=== PATIENT | female | born 1950 | race Caucasian/White ===

== ENCOUNTER → 2021-03-17 09:21 | Outpatient (CLI) | payer MEDICAID, SELFPAY ==
--- NOTE | 2021-03-17 09:34 | CT_ITS ---
STUDY: CT BILATERALLOWER EXTREMITY WITHOUT CONTRAST REASON FOR EXAM: Female, 71 years old. templating for right ROSALIE RADIATION DOSAGE (If Supplied By Facility): CTDIvol = ( 231.77 ) mGy, DLP = ( 2572.08 ) mGycm TECHNIQUE: Thin section transaxial imaging of from the pelvis down to the knee joints, with sagittal and coronal reconstructed images. Individualized dose optimization techniques were used for this CT. COMPARISON: None. FINDINGS: There is severe narrowing and associated degenerative changes of the right hip and moderate to severe degenerative changes and narrowing of the left hip. The bony structures are diffusely demineralized. No visualized fractures of the pelvis or sacrum or bilateral hips. No fractures are seen in the femoral regions or knee joints. Mild to moderate narrowing is present in the lateral knee joint. The visualized abdominal and pelvic structures are unremarkable. At the sclerotic calcifications are present in the aorta as well as extremity arteries. Small calcified buttock granulomata noted bilaterally. CT/Extremity Lower without Contra IMPRESSION: 1. 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
== END ==
PROVIDERS: Referring Provider Orthopaedic Surgery; Visit Provider Orthopaedic Surgery
DX: M16.11 Unilateral primary osteoarthritis, right hip (principal)
CPT/HCPCS: 73700

== ENCOUNTER 2021-04-18 05:35 | Observation (INO) | payer MEDICAID, SELFPAY ==
[2021-04-18] VITALS (16 sets, daily range): BP systolic 103–149; BP diastolic 64–98; PULSE 53–76; RESP 16–100; TEMP 35.6–36.6; O2SAT 16–100; BMI 20.5
[2021-04-18 06:40] LABS: Bedside Glucose 87 mg/dL (70-110)
[2021-04-18] MEDS: Lactated Ringers 1,000 ML 999 ML IV (06:54)
--- NOTE | 2021-04-18 07:01 | HP.PCM_ITS ---
History and Physical Date of Admission: 04/18/21 Date of Service: 02/10/21 MR#:[id number]:[id number]: Meghna MOBLEY #:[id number]:[id number] Provider:Dr. Bharat Noriega DOAge/Sex: 70/F [facility]Signed Intake Vital Signs 02/10/21 08:19 Height 5 ft 10 in Intake Visit Reasons: RIGHT LEG Accompanied by: self Is patient in pain?: Yes Pain scale (1-10): 8 Allergies aspirin Allergy (Unknown, Verified 02/10/21 08:19) unknown Medications acetaminophen 325 mg tablet 650 mg PO ONCE PRN tab 02/10/21 [History Confirmed 02/10/21] albuterol sulfate 90 mcg/actuation breath activated powder inhaler 2 inh INHALATION Q4H PRN 02/10/21 [History Confirmed 02/10/21] bupropion HCl 150 mg 24 hr tablet, extended release 150 mg PO QAM 02/10/21 [History Confirmed 02/10/21] famotidine 40 mg tablet 40 mg PO DAILY 02/10/21 [History Confirmed 02/10/21] lidocaine 5 % topical patch 1 patch TOPICAL DAILY PRN 02/10/21 [History Confirmed 02/10/21] meloxicam 15 mg tablet 15 mg PO DAILY 02/10/21 [History Confirmed 02/10/21] [facility] Medical History (Updated 02/10/21 @ 09:[address] Bharat Noriega DO) Cataract Surgical History (Updated 02/10/21 @ 08:13 by Jania Degroot) History of tonsillectomy Hx of foot surgery Social History (Updated 02/10/21 @ 08:26 by Jania Degroot) Smoking Status: Current every day smoker alcohol intake: never HPI RIGHT LEG Details: Parts of this documentation were recorded by a scribe, this documentation accurately reflects the service provided and the decisions made by me, Dr. Bharat Noriega DO 02/10/21 0800. JIMI MOBLEY is a 70 year old F NEW patient here today for right lateral sided hip pain and severe groin pain, that prohibits her from walking. Referred by Fracisco Bermudez. She states she has had this hip pain for about 5 years. Denies any recent trama to the hip. does have a hx of falls with the most recent fall being about 3 months ago. She does not ambulate and is in a WC she states because of her right hip. She does have low back pain and right leg pain that radiates to her right knee. Denies numbness, tingling or other associated symptoms. She states that the leg pain is a sharp shooting pain when she tried to weight bear. Denies any radicular pain of the left leg. Denies any surgery of the hip or back. She has had a hip injection about 9 months ago and she does not recall who preformed this and she states the injection did not help. She has a hx of stroke which is affecting the right side. She states she hasnt walked since her stroke. Reports a mushy/jello feeling of the right knee. Requires 2 person assist to stand. Has tried PT but states this does not help. Denies any hx of infections or active infections. Ortho Exam General General: Yes no acute distress Neurologic: Yes alert and Yes oriented x3 Psychologic: Yes reasonable and appropriate Right Knee KNEE: 40 active extension right knee contracture lacking 15 passive extension Right Hip Skin: No Ecchymosis, No soft tissue swelling and No Erythema Special Tests: Yes TTP Greater Troch Homans Sign: No HIP: 0 internal rotation 30 external rotation with pain both cause severe hip pain. She does have 4-5 hip flexion strength that she attributes to pain in her hip 4- 5 knee extension 5 out of 5 ankle flexion and extension There is no concerning skin lesions around the right hip Supplemental Info 02/10/2021 x-ray right hip: Advanced DJD right hip 02/10/2021 x-ray lumbar spine: Multilevel degenerative changes Coding Level of Care Code Off vis,new,level 3 Diagnoses Degenerative joint disease of right hip M16.11 CVA (cerebrovascular accident) I63.9 Hemiparesis affecting right side as late effect of cerebrovascular accident I69.351 Lumbar degenerative disc disease M51.36 Assessment and Plan Assessment and Plan (1) Degenerative joint disease of right hip: Status: Acute (2) CVA (cerebrovascular accident): Status: Acute Plan - Dr. Bharat Noriega, DO: Obtained X-rays of patient's right hip and lumbar spine. Personally reviewed x- rays. There is no obvious fracture, dislocation, or lucency noted. Patient educated that she has bone on bone arthritis of the right hip and she also has DDD of the lumbar spine. There is significant fall risk concern with this patient and I explained to her if she were to fall on a total hip replacement it could be a catastrophic injury , she understands this risk and is willing to accept it considering the severity of her hip pain and she feels the hip pain is the only reason she cannot ambulate . Patient educated that if she falls on a hip replacement this will be a major surgery and will then require her to be transferred to [facility] for a revision. Risks, benefits and alternatives of surgery reviewed including but not limited to bleeding, infection, nerve, artery and/or tissue damage, fracture, VTE, leg length discrepancy, dislocation, need for hip precautions, continued pain and expected post-operative course. Patient educated She would benefit from full admission and transfer to rehab facility postoperatively for best chance of achieving an ambulatory status postoperatively secondary to her history of stroke. We will need a CT scan prior to surgery and medical clearance. Follow up in or sooner if pain, swelling, numbness or associated symptoms, or concerns develop. All questions answered. Patient in agreement of plan. (3) Hemiparesis affecting right side as late effect of cerebrovascular accident: Status: Acute (4) Lumbar degenerative disc disease: Status: Acute Plan Details Other Orders: Orders: HIP, UNI W/ Pelvis 2-3 Views Today M25.551 Lumbar Spine 2 or 3 Views Today M25.551 02/10/21 0929<Electronically signed by Bharat Noriega DO>Date Bharat Noriega DO Cosigner Signature:Date (if applicable) CC: ~
[2021-04-18] MEDS: Gabapentin 600 MG Tablet PO (07:04)
[2021-04-18] MEDS: Acetaminophen 500 MG Tablet 1000 MG PO ×2 (07:04→22:15)
[2021-04-18] MEDS: Celecoxib 200 MG Capsule 400 MG PO (07:05)
[2021-04-18] MEDS: Scopolamine 1mg/72hr Patch 1 PATCH TD (07:05)
[2021-04-18] MEDS: Lactated Ringers 1,000 ML 100 ML IV ×2 (07:22→09:45)
[2021-04-18] MEDS: Ipratropium/Albuterol Sulfate 3 ML AMPUL.NEB INHALATION (07:23)
--- NOTE | 2021-04-18 07:30 | FEM_PTH ---
PATIENT: JIMI MOBLEY LOC: MS3 U#:[id number] AGE/SX: 71/F ROOM: [facility] RE04/18/[address]: Dr. Bharat Noriega DO : 1950 BED: 1 DIS: 04/21/2021 SPEC #: [id number] RECD: 04/18/21 10:27 STATUS: EFRAIN JEANIE #: [id number] SIMI: 04/18/21 07:[address]: Bharat Noriega DEPT: SURGICAL PATHOLOGY RECD BY: Rachel Johnson Tissues: Femoral region, NOS Procedures: Decalcification bone/plaque Surgery Specimen Level IV HEADER OPERATION: ERAS, total hip replacement robotic arm assist PRE-OP DIAGNOSIS: Degenerative joint disease right hip TISSUE SUBMITTED: Right hip bone and soft tissue MICROSCOPIC DIAGNOSIS Right hip bone and tissue, total hip replacement/resection: Femoral head with degenerative osteoarthritic changes. Fragments of fibrocartilaginous tissue. SJ:saundra 04/21/2021 MICROSCOPIC DESCRIPTION Slides are reviewed. GROSS DESCRIPTION Received is one container labeled with the patient's name and designated bone and soft tissue hip, right. The specimen consists of a regan femoral head with portion of femoral neck. The femoral head measures 5.5 x 5.5 x 5 cm and the femoral neck measures up to 1 cm in length. The articular surface displays prominent osteophyte formation, eburnation and bone erosion. Also present in the specimen container are multiple irregular fragments of bone reamings and pink-yellow soft tissue measuring in aggregate 9 x 8 x 3 cm. Poultry Hatchery Manager sections are submitted in two cassettes as follows: 1 - soft tissue, 2 - bone after decalcification. / CHUCHO:saundra 04/18/21 TC:5 [facility]: [id number], [id number]
[2021-04-18] MEDS: Cefazolin 2 GM in 0.9% Normal Saline 100 ML IV (08:08)
--- NOTE | 2021-04-18 10:10 | PCM.OPRPT ---
Report of Operation Date of Procedure: 04/18/21 Description of Surgical Findings:: Preoperative diagnosis: Right hip DJD Postoperative diagnosis: Same Procedure: CT-guided Makoplasty assisted right total hip arthroplasty Implants: Ester Accolade II stem size 6, 132 degree neck angle 0 neck length 60 mm Trident II acetabular shell with 20 mm cancellous screw 36 mm ceramic head Anesthesia: Spinal EBL: 100 cc Complications: None Condition: Stable to PACU Indication for procedure: This is a 71-year-old female patient who has advanced right hip arthrosis was had severe pain in her right hip. Of note patient has had history of CVA and right-sided hemiparesis although she does have motor function in her ankle knee and hip. She has not ambulated independently for a year she feels that the hip is the reason she cannot ambulate. Even if she cannot ambulate after hip replacement she wishes to get some relief from her right hip arthritis who has failed conservative treatment and wished to undergo total hip arthroplasty. We did discuss operative versus nonoperative intervention including risks of bleeding, infection , nerve artery tissue damage, need for further surgery, fracture, leg length discrepancy dislocation blood clot and need for postoperative physical therapy and postoperative expectations, inability to ambulate secondary to nonambulatory status for so long. An informed consent was signed. Procedure: Patient was met in the preoperative holding area once again the operative extremity was identified by both patient and physician and was marked. Patient was met by anesthesia . Anesthesia was started. patient was then positioned in the lateral decubitus position on a well-padded pegboard with an axillary roll. All bony prominences were checked and padded. The patient was prepped and draped in the usual sterile fashion. A timeout was called to ensure the proper patient procedure and extremity were being contemplated. Anatomic landmarks were palpated and marked for a standard posterior lateral approach. Prior to this the ASIS was palpated and 3 fingerbreadths proximal to this 3 pins were placed at a 45 degree angle into the iliac crest with good purchase, stab incisions were made with a 15 blade into the skin prior to placement. The Makoplasty array was then secured. A 10 blade scalpel was used to make a posterior incision through the skin and subcutaneous tissue. retractors were used and electrocautery was used to maintain meticulous hemostasis and dissect full-thickness flaps until the gluteal fascia was reached. The gluteal fascia was incised in line with the gluteal fibers. The bursal tissue was then freed from the underside and a Charnley retractor was placed. The femoral trochanteric checkpoint was placed and leg length was assessed using the trochanteric checkpoint and an EKG lead that was placed on the knee prior to prepping the leg .the fat pad was then elevated off of the external rotators with electrocautery and the external rotators were dissected off of the greater trochanter including the piriformis and were tagged with #1 Ethibond for later repair. The joint capsule opened with posterior trapdoor technique. The hip was surgically dislocated. The measurement on the preoperative CT from the top of the lesser trochanter to the femoral neck cut was marked Hohmann was placed around the lesser trochanter. A neck cutting guide was used to selena the neck with a Bovie and an oscillating saw was used complete the femoral neck cut. The femoral head was then removed and sized. We then turned our attention to the acetabulum. A Bovie was used to make a perforation in the anterior joint capsule and a Li retractor was placed this was repeated in the 6 o'clock position and a wide per was placed there. With a long handled knife the labral and pulvinar tissue were removed. We then registered the acetabulum with the pointing array and confirmed our landmarks. Once the socket was thoroughly prepared and labral tissue and pulvinar was removed we single reamed with the robotic arm. We then used the robotic arm to position the acetabular implant and impacted it into place under robotic guidance. We then proceeded to place a posterior superior screw by drilling first measuring and inserting the screw. We then inserted a trial liner. And turned our attention back to the femur at this point a femoral elevator was used. As well as a pointed wide Hohmann around the lesser trochanter and a Hohmann to help retract the gluteus medius. A box chisel was used to remove excess lateral neck followed by a canal finder and a lateralizing reamer. This was followed by sequential broaches. Attention was made of the version within the canal based on preoperative templating. Once the final broach was seated we then trialed reduced the hip it was determined that a 132 degree neck angle with a 0 neck length was the appropriate size, she did have a hip and knee flexion contracture we did perform some capsular releases and final construct was 2 mm shorter than the contralateral side with 5 mm longer than the preoperative lengths. We then checked stability with shuck testing as well as flexion and internal rotation. It was not felt that she needed MDM for stability. then proceeded with hip extension and checked leg lengths at the knees and heels as well as with the trochanteric checkpoint and knee EKG lead. At this point trials were removed. A liner was inserted to the cup. The femoral stem was inserted. We re-trialed and then proceeded to impact the femoral head onto the Joshua taper. We then surgically reduce the hip check stability again and leg lengths and were satisfied. Betadine rinse was allowed to sit for 5 minutes while everyone changed their gloves. Thorough irrigation was performed. Followed by closure of the external rotators with #2 FiberWire followed by closure of gluteal fascia with #1 Ethibond. 0 Vicryl fat stitches and 2-0 Vicryl subcutaneous stitches and bobby in the skin. A pulls were placed in the pin sites over the iliac crest with Xeroform 4 x 4 and OpSite. dressing was applied to incisional area with Mepilex Ag and an abduction pillow was placed. Patient tolerated the procedure well there was no intraoperative complications all counts were correct and the patient was brought back to the PACU in stable condition
--- NOTE | 2021-04-18 10:22 | RAD_ITS ---
STUDY: X-RAY - PELVIS AND RIGHT HIP REASON FOR EXAM: Postoperative evaluation of right hip arthroplasty. TECHNIQUE: 2 views of the pelvis and hip. COMPARISON: Radiographs 02/10/2021. FINDINGS: There is osteopenia. There is postoperative gas in the soft tissues and overlying skin bobby. Normal bilateral superior and inferior pubic rami. Normal pubic symphysis. Normal bilateral ischial tuberosities. There is a right hip arthroplasty without evidence of complication. RAD/Hip Min 2 Views (Portable) IMPRESSION: Uncomplicated right hip arthroplasty. Electronically Signed: Nick Valentino MD at 11:09 EDT Tel , Service support ,
[2021-04-18] MEDS: Lactated Ringers 1,000 ML 125 ML IV ×2 (11:21→16:20)
[2021-04-18] MEDS: Cefazolin 1 GM/50 ML BAG IV ×2 (11:33→22:12)
--- NOTE | 2021-04-18 15:22 | PCM.PN.HOSP ---
Subjective Subjective Post op s/p right hip arthroplasty. Objective Data Objective Data Vital Signs: Vital Signs Temp Pulse Resp BP Pulse Ox 35.7 C L 68 16 134/81 H 96 04/18/21 14:12 04/18/21 14:12 04/18/21 14:12 04/18/21 14:12 04/18/21 14:12 Oxygen Flow Rate (L/min) 6 Oxygen Delivery Method Room Air Weight: 64.864 kg Body Mass Index (BMI) 20.5 Intake & Output: Intake and Output for Last 24 Hours 04/16/21 04/17/21 04/18/21 23:59 23:59 23:59 Intake Total 3384 / 3384 Balance 3384 / 3384 Lab / Micro Data Labs: Laboratory Results - last 24 hr 04/18/21 06:14: POC Glucose 87 04/18/21 06:30: Blood Type A POSITIVE, Antibody Screen NEGATIVE Radiography Diagnostic Testing: Radiology Impression Hip X-Ray 04/18/21 10:22 IMPRESSION: Uncomplicated right hip arthroplasty. Electronically Signed: Nick Valentino MD at 11:09 EDT Tel , Service support , Physical Exam Const Constitutional Narrative: somnolent. opens eyes to voice, but does not communicate. Resp normal respiratory effort, no retractions, no use of accessory muscles and clear to auscultation bilaterally GI normal to inspection, nondistended, normoactive bowel sounds, soft to palpation, non-tender and non-distended Assessment & Plan Assessment/Plan (1) HTN (hypertension): QUALIFIERS: Hypertension type: primary hypertension Qualified Code(s): I10 - Essential (primary) hypertension PLAN: Assessment/Plan: 1. HTN: per history. Stable. On no home medications. 2. COPD: per history. stable. On room air 3. s/p Right hip replacement: s/p CT-guided Makoplasy assisted right total hip arthoplasty on 04/18. mgmt per orthopaedics. 4. h/o CVA: on no medication. 5. VTE prophylaxis: apixaban. thank you for consult. Will follow. Charges/Coding Visit Charges Inpatient E&M: 96321 Subs Hosp L2
[2021-04-18] MEDS: oxyCODONE 5 MG Tablet PO (19:46)
[2021-04-18] MEDS: Senna/Docusate Sodium 1 Tablet 2 TABLET PO (22:16)
[2021-04-19] VITALS (8 sets, daily range): BP systolic 112–132; BP diastolic 50–80; PULSE 64–76; RESP 14–18; TEMP 36.8–37.1; O2SAT 92–94
[2021-04-19] MEDS: Lactated Ringers 1,000 ML 125 ML IV ×2 (00:43→09:31)
[2021-04-19] MEDS: Cefazolin 1 GM/50 ML BAG IV (05:43)
[2021-04-19] MEDS: Acetaminophen 500 MG Tablet 1000 MG PO ×2 (05:46→14:07)
[2021-04-19] MEDS: oxyCODONE 5 MG Tablet PO ×2 (05:47→19:02)
[2021-04-19] MEDS: APIXABAN 2.5 MG TABLET PO (06:03)
[2021-04-19 07:05] LABS: Hemoglobin 12.4 g/dL (12.0-15.0); Mean Corp Hgb Conc 33.5 g/dL (32-36); Mean Corpuscular Hgb 32.2 pg (27.0-32.0); Mean Corpuscular Volume 96.1 fL (81-99); Mean Platelet Vol. 10.1 fl (6.2-12.0); Platelet Count 172 K/mm3 (150-450); RBC Distribution Width CV 12.8 % (11.6-14.6); RBC Distribution Width SD 44.6 fl (35.1-43.9); Red Blood Count 3.85 M/mm3 (4.2-5.4); White Blood Count 9.6 K/mm3 (4.4-11.0)
[2021-04-19 07:33] LABS: Anion Gap 4 (5-15); BUN 31 mg/dL (7-18); BUN/Creat Ratio 32.2 RATIO (10-20); Calcium,Total 8.4 mg/dL (8.5-10.1); Chloride 111 mmol/L (98-107); Creatinine, Serum 0.96 mg/dL (0.55-1.02); EST Glomerular Filtration Rate 61 mL/min (>60); Est Glom Filt Rate - Afr Amer 74 mL/min (>60); Estimated Creatinine Clearance 56.63 ml/min; Glucose 132 mg/dL (74-106); Potassium 4.3 mmol/L (3.5-5.1); Sodium Level 138 mmol/L (136-145)
[2021-04-19] MEDS: 0.9% Saline Lock 10 ML Syringe IV (07:36)
[2021-04-19] MEDS: Ketorolac 15 MG/ML Vial IV (07:36)
--- NOTE | 2021-04-19 09:23 | CASEMGMT ---
Addendum entered by Rita Pastor 04/19/21 11:45: YAMILETH received call from pt's [facility] requesting update. SW provided update on pt's plan to return to [facility]. [place] states understanding, direct number is [phone]. YAMILETH faxed PT/OT to [facility]. 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 Pt will need a new COVID test on day of discharge. YAMILETH spoke with admissions that this worker will need to submit for LOC, if LOC is received today, pt could return today. Admissions states understanding, able to accept pt today if LOC received. Addendum entered by Rita Pastor 04/19/21 10:48: SW in to speak with pt. SW introduced self and role at [facility]. Pt is alert and orientated x3. Pt states she resides at [facility] and has been there for 4-5 months. YAMILETH spoke with pt about discharge plans, how pt will likely need to return to [facility] in skilled side. Pt states understanding, agreeable to returning to [facility] skilled. YAMILETH faxed updated clinicals to [facility]. SW will need submit for LOC for Medicaid. Original Note: Social Work Note Pt is listed as being from [facility]. YAMILETH placed a call to [facility], admissions is not in yet, SW left message for admissions to call this worker back. Rita Pastor CORPORATE BUYER, [employer]OMOBILE DAMAGE APPRAISER
[2021-04-19] MEDS: buPROPion (XL) 150 MG TABLET.XL PO (10:35)
--- NOTE | 2021-04-19 12:58 | PCM.PN.ORT ---
Subjective Subjective Seen and examined pain controlled. No complaints of fevers chills nausea vomiting shortness of breath chest pain. Objective Data Objective Data Vital Signs: Vital Signs Temp Pulse Resp BP Pulse Ox 98.6 F 65 18 112/68 93 04/19/21 10:32 04/19/21 10:32 04/19/21 10:32 04/19/21 10:32 04/19/21 10:32 Oxygen Flow Rate (L/min) 6 Oxygen Delivery Method Room Air Weight: 143 lb Body Mass Index (BMI) 20.5 Intake & Output: Intake and Output for Last 24 Hours 04/17/21 04/18/21 04/19/21 23:59 23:59 23:59 Intake Total 4379 / 4379 2049 / 2049 Output Total 825 / 825 Balance 4379 / 4129 1225 / 1225 Lab / Micro Data Result Diagrams: 04/19/21 06:48 04/19/21 06:48 Labs: Laboratory Results - last 24 hr 04/19/21 06:48: WBC 9.6, RBC 3.85 L, Hgb 12.4, Hct 37.0, MCV 96.1, MCH 32.2 H, MCHC 33.5, RDW Std Deviation 44.6 H, RDW Coeff of Samantha 12.8, Plt Count 172, MPV 10.1 04/19/21 06:48: Sodium 138, Potassium 4.3, Chloride 111 H, Carbon Dioxide 23.0, Anion Gap 4 L, BUN 31 H, Creatinine 0.96, Estim Creat Clear Calc 56.63, Est GFR (MDRD) Af Amer 74, Est GFR (MDRD) Non-Af 61, BUN/Creatinine Ratio 32.2 H, Glucose 132 H, Calcium 8.4 L Physical Exam Const alert, oriented x3 and no apparent distress General Appearance: cooperative Extremity Extremity Narrative: Right hip dressing clean dry intact compartments soft neurovascular intact Assessment & Plan Assessment/Plan (1) CVA (cerebrovascular accident): (2) Hemiparesis affecting right side as late effect of cerebrovascular accident: (3) Asthma: (4) COPD (chronic obstructive pulmonary disease): (5) HTN (hypertension): QUALIFIERS: Hypertension type: primary hypertension Qualified Code(s): I10 - Essential (primary) hypertension PLAN: Postop day #1 right total hip arthroplasty Right-sided hemiparesis secondary to CVA, patient would like to attempt to ambulate again recommend rehab before returning to assisted Eliquis 2.5 mg twice daily for 30 days DC to rehab when available
--- NOTE | 2021-04-19 15:12 | PCM.PN.HOSP ---
Subjective Subjective Complaining of hip because she cannot move her leg. Objective Data Objective Data Vital Signs: Vital Signs Temp Pulse Resp BP Pulse Ox 37.0 C 65 18 112/68 93 04/19/21 10:32 04/19/21 10:32 04/19/21 10:32 04/19/21 10:32 04/19/21 10:32 Oxygen Flow Rate (L/min) 6 Oxygen Delivery Method Room Air Weight: 64.864 kg Body Mass Index (BMI) 20.5 Intake & Output: Intake and Output for Last 24 Hours 04/17/21 04/18/21 04/19/21 23:59 23:59 23:59 Intake Total 4379 / 4379 3000 / 3000 Output Total 1425 / 1425 Balance 4379 / 4129 1575 / 1575 Lab / Micro Data Result Diagrams: 04/19/21 06:48 04/19/21 06:48 Labs: Laboratory Results - last 24 hr 04/19/21 06:48: WBC 9.6, RBC 3.85 L, Hgb 12.4, Hct 37.0, MCV 96.1, MCH 32.2 H, MCHC 33.5, RDW Std Deviation 44.6 H, RDW Coeff of Samantha 12.8, Plt Count 172, MPV 10.1 04/19/21 06:48: Sodium 138, Potassium 4.3, Chloride 111 H, Carbon Dioxide 23.0, Anion Gap 4 L, BUN 31 H, Creatinine 0.96, Estim Creat Clear Calc 56.63, Est GFR (MDRD) Af Amer 74, Est GFR (MDRD) Non-Af 61, BUN/Creatinine Ratio 32.2 H, Glucose 132 H, Calcium 8.4 L Physical Exam Const alert Resp normal respiratory effort and no retractions Cardio regular rate, regular rhythm, S1 normal heart sound and S2 normal heart sound GI normal to inspection, nondistended, normoactive bowel sounds, soft to palpation, non-tender and non-distended Extremity normal to inspection Assessment & Plan Assessment/Plan (1) HTN (hypertension): QUALIFIERS: Hypertension type: primary hypertension Qualified Code(s): I10 - Essential (primary) hypertension PLAN: Assessment/Plan: 1. HTN: per history. Stable. On no home medications. 2. COPD: per history. stable. On room air 3. s/p Right hip replacement: s/p CT-guided Makoplasy assisted right total hip arthoplasty on 04/18. mgmt per orthopaedics. 4. h/o CVA: on no medication. 5. VTE prophylaxis: apixaban. Medically stable for discharge. Will sign off. Call with questions. Charges/Coding Visit Charges Inpatient E&M: 37458 Subs Hosp L1
--- NOTE | 2021-04-19 15:25 | CASEMGMT ---
Social Work Note YAMILETH updated that physician is requesting inpatient rehab (RU) for pt. YAMILETH placed a call to [facility] with RU. RU to review referral. YAMILETH received email from [facility] with [facility] stating pt is not appropriate for RU. YAMILETH faxed transfer to extended care facility to Physician to complete as this form is needed for LOC to be received. YAMILETH wrote on fax coversheet, pt doesn't qualify for Rehab Unit, pt will need to go to SNF. YAMILETH waiting for transfer to extended care to be faxed back to this worker. Once transfer to extended care facility document is received, LOC to be submitted for pt to admit to SNF under Medicaid. Plan: [facility] pending LOC Rita Pastor DRAIN TILE MACHINE OPERATOR, CARPENTERS
--- NOTE | 2021-04-19 15:47 | CHAPLAIN ---
Type of Pastoral Visit _x__ Initial Visit ___ Follow-up Visit ___ On-call Visit ___ General Patient Visit ___ Spiritual Assessment ___ Family Conference ___ Bereavement ___ Rapid Response ___ Code Blue ___ Other (describe below) Pastoral Care Referral From _x__ Patient ___ Family ___ Nurse ___ Physician ___ Wire Setter ___ Seafood Technology Specialist ___ Other (describe below) Sacrament/Intervention ___ Active listening ___ Anointing ___ Confucianism ___ Bereavement ___ Communion ___ Delores exploration ___ ___ Life review ___ Prayer ___ Reconciliation ___ Sacrament of Sick _x__ Supportive presence ___ Wedding ___ Other (describe below) Pastoral Comments patient was alert; pt had initially asked for spiritual care but declined it at this time; pt states that she is fine and needs nothing but to be left alone
[2021-04-20] MEDS: oxyCODONE 5 MG Tablet PO ×5 (03:13→23:05)
[2021-04-20 04:00] VITALS: BP 156/86; PULSE 66; RESP 16; TEMP 36.1; O2SAT 96
[2021-04-20] MEDS: Acetaminophen 500 MG Tablet 1000 MG PO ×3 (06:44→21:47)
--- NOTE | 2021-04-20 07:14 | PN.ORTHO_ITS ---
Subjective Subjective Patient seen and examined. Complain of pain. She has been noncompliant with nursing and is refusing to take some of her medication. Objective Data Objective Data Vital Signs: Vital Signs Temp Pulse Resp BP Pulse Ox 97.0 F L 66 16 156/86 H 96 04/20/21 04:00 04/20/21 04:00 04/20/21 04:00 04/20/21 04:00 04/20/21 04:00 Oxygen Flow Rate (L/min) 6 Oxygen Delivery Method Room Air Weight: 143 lb Body Mass Index (BMI) 20.5 Intake & Output: Intake and Output for Last 24 Hours 04/18/21 04/19/21 04/20/21 23:59 23:59 23:59 Intake Total 4379 / 4379 4537.5 / 4537.5 Output Total 1425 / 1675 250 / 250 Balance 4379 / 4129 3112.5 / 2862.5 -250 / -250 Lab / Micro Data Result Diagrams: 04/19/21 06:48 04/19/21 06:48 Labs: Laboratory Results - last 24 hr 04/19/21 06:48: Sodium 138, Potassium 4.3, Chloride 111 H, Carbon Dioxide 23.0, Anion Gap 4 L, BUN 31 H, Creatinine 0.96, Estim Creat Clear Calc 56.63, Est GFR (MDRD) Af Amer 74, Est GFR (MDRD) Non-Af 61, BUN/Creatinine Ratio 32.2 H, G lucose 132 H, Calcium 8.4 L Physical Exam Const alert and no apparent distress General Appearance: Negative for cooperative Extremity Extremity Narrative: Right hip dressing clean dry and intact compartments soft neurovascular intact right lower extremity Assessment & Plan Assessment/Plan (1) Hemiparesis affecting right side as late effect of cerebrovascular accident: (2) Status post right hip replacement: (3) Noncompliance: PLAN: Postop day #2 right total hip arthroplasty Right-sided hemiparesis secondary to old CVA DVT prophylaxis Armand Bruno and GLENN bill DC planning to rehab today [place] out in 2 weeks PT OT weightbearing as tolerated
--- NOTE | 2021-04-20 07:17 | DCINST_ITS ---
Discharge Instructions Dressing / Incision Call your doctor if you observe: Shortness of breath and Chest pain Additional Dressing/Incision Instructions:: Do not shower 72hrs. Begin daily showering warm water antibacterial soap postop day #3( 72hrs Post-operatively) and then daily. Leave the dressing on for 72 hours postoperatively then may remove prior to first shower and change dressing daily after this until no drainage for 2 consecutive days then may leave open to air. Follow hip precautions that were reviewed in hospital. Wear compression stockings, may remove at night. Start physical therapy as directed in hospital. Follow prescriptions instructions do not take any other pain medication or differ dosing without consulting your physician. Do not take oral NSAIDs until blood thinner has been completed , then may begin the day after completion if needed . Call Dr. Noriega's office with any concerns. Follow Up Care Please Follow Up With: Bharat Noriega DO When: 2 weeks Test Results: Test results from this visit will be discussed in further detail at your follow-up appointment, if applicable. Discharge Plan Admission Admit Date/Time: 04/18/21 05:35 Attending Provider: Bharat Noriega Consulting Providers: Ishmael Carrasoc Discharge Orders/Prescriptions Prescriptions: New acetaminophen 500 mg Tablet 1,000 mg PO Q8 Qty: 100 RF: 0 oxycodone 5 mg tablet 5 - 10 mg PO Q4H PRN (Reason: pain) 7 Days Qty: 60 RF: 0 Eliquis 2.5 mg tablet 2.5 mg PO BID Qty: 60 RF: 0 Continued bupropion HCl 150 mg tablet extended release 24 hr 150 mg PO QAM RF: 0 famotidine 40 mg tablet 40 mg PO DAILY RF: 0 lidocaine 5 % adhesive patch,medicated 1 patch topical DAILY PRN (Reason: Pain) RF: 0 albuterol sulfate 90 mcg/actuation aerosol powdr breath activated 2 inh inhalation Q4H PRN (Reason: sob) RF: 0 Discontinued meloxicam 15 mg tablet 15 mg PO DAILY RF: 0 acetaminophen [Tylenol] 325 mg Capsule 1,000 mg PO TID PRN (Reason: Pain) RF: 0 Other Ambulatory Orders: Type & Screen - PAT ONLY (Routine) Timeframe: [id number] Facility: [facility] - Location: Laboratory Ordered By: Dr. Bharat Noriega Referrals / Follow Up: PHONG SANTA [Other]
[2021-04-20 07:40] LABS: Hematocrit 38.5 % (37-47); Mean Corp Hgb Conc 33.8 g/dL (32-36); Mean Corpuscular Hgb 32.3 pg (27.0-32.0); Mean Corpuscular Volume 95.5 fL (81-99); Mean Platelet Vol. 9.9 fl (6.2-12.0); Platelet Count 154 K/mm3 (150-450); RBC Distribution Width CV 13.1 % (11.6-14.6); RBC Distribution Width SD 46.2 fl (35.1-43.9); Red Blood Count 4.03 M/mm3 (4.2-5.4); White Blood Count 6.1 K/mm3 (4.4-11.0)
[2021-04-20 08:26] VITALS: BP 168/93; PULSE 80; RESP 18; TEMP 36.6; O2SAT 95
[2021-04-20] MEDS: Famotidine 20 MG Tablet 40 MG PO (08:31)
[2021-04-20] MEDS: APIXABAN 2.5 MG TABLET PO ×2 (08:32→21:47)
--- NOTE | 2021-04-20 13:58 | CASEMGMT ---
Social Work Note YAMILETH faxed LOC to [facility]. YAMILETH placed a call to [facility] and spoke with Soheila in admissions. YAMILETH updated Soheila that LOC has been submitted, waiting on results. If results are obtained today, pt is medically ready for discharge today. Soheila states understanding, asked for updated clinicals to be faxed. YAMILETH faxed clinicals to [facility]. Plan: [facility] to [facility] skilled pending LOC Rita Pastor REGULATORY COMPLIANCE MANAGER, FISH CLEANER MACHINE TENDER
[2021-04-20 14:30] VITALS: BP 143/85; PULSE 61; RESP 16; TEMP 36.4; O2SAT 98
--- NOTE | 2021-04-20 16:00 | CASEMGMT ---
Social Work Note Level of Care (LOC) is still pending. SW is leaving for the day. SW placed a call to physician's office that insurance is still pending, will follow up with insurance tomorrow. Plan: [facility] pending LOC Rita Pastor WINE MAKER, BEACH LIFEGUARD
[2021-04-20 18:13] VITALS: BP 165/91; PULSE 67; RESP 16; TEMP 36.6; O2SAT 96
[2021-04-20 21:36] VITALS: BP 150/91; PULSE 65; RESP 17; TEMP 36.9; O2SAT 99
--- NOTE | 2021-04-21 00:41 | PCS.PANDOC ---
PANDEMIC DOCUMENTATION INITIATED: Date: 04/03/2021 Time: 190
[2021-04-21 03:09] VITALS: BP 158/86; PULSE 68; RESP 18; TEMP 526.6; TEMP 979.8; O2SAT 97
[2021-04-21] MEDS: oxyCODONE 5 MG Tablet PO ×3 (03:11→14:05)
[2021-04-21 05:46] LABS: Hemoglobin 13.3 g/dL (12.0-15.0); Mean Corp Hgb Conc 33.3 g/dL (32-36); Mean Corpuscular Hgb 31.7 pg (27.0-32.0); Mean Corpuscular Volume 95.2 fL (81-99); Mean Platelet Vol. 10.4 fl (6.2-12.0); Platelet Count 183 K/mm3 (150-450); RBC Distribution Width CV 12.9 % (11.6-14.6); RBC Distribution Width SD 44.5 fl (35.1-43.9); White Blood Count 5.8 K/mm3 (4.4-11.0)
[2021-04-21] MEDS: Acetaminophen 500 MG Tablet 1000 MG PO ×2 (05:58→14:05)
[2021-04-21 08:00] VITALS: RESP 16; O2SAT 96
[2021-04-21 08:40] VITALS: BP 142/92; PULSE 67; RESP 16; TEMP 36.5; O2SAT 96
[2021-04-21] MEDS: Ondansetron 4 MG/2 ML Vial IV (09:16)
[2021-04-21] MEDS: 0.9% Saline Lock 10 ML Syringe IV (09:16)
--- NOTE | 2021-04-21 11:35 | CASEMGMT ---
Social Work Note YAMILETH placed a call to [facility], spoke with Opal in Pre-screening dept. Opal states they never received LOC request for pt yesterday. YAMILETH informed Opal that this worker faxed request around 2:00pm yesterday, Opal states they never received it, requested LOC to be refaxed. YAMILETH refaxed LOC request to [facility], confirmed right fax number. It should be noted that this worker did receive a fax confirmation yesterday. YAMILETH received call from Soheila at [facility] requesting update. YAMILETH updated Soheila that this worker is still waiting for LOC results. If LOC results are obtained, pt to discharge to [facility] today. Soheila states understanding. [facility] LOC Rita Pastor FRAME TENDER, SPICE MIXER
[2021-04-21 13:00] VITALS: BP 128/74; PULSE 70; RESP 16; TEMP 36.5; O2SAT 93
--- NOTE | 2021-04-21 13:30 | CASEMGMT ---
Addendum entered by Rita Pastor 04/21/21 14:07: YAMILETH placed a call to pt's [facility]te[facility] and updated him that pt will be discharged back to [facility] today. Matteo states understanding, will follow up with pt at [facility]. Original Note: Social Work Note SW received LOC results. YAMILETH faxed completed discharge paperwork to [facility] including transfer to extended care facility, signed medication list, any scripts, convalescent 7000, and COVID test/Tool. Original in SNF Folder and copy on pt's chart. YAMILETH completed convalescent 7000 in [facility] yesterday. YAMILETH spoke with RN, pt can transport via cot. YAMILETH accessed trip assist and arranged transportation via cot for 2:30pm. Transportation form completed and placed on SNF folder and copy on pt's chart. SW in to speak with pt. YAMILETH updated pt on discharge back to [facility] today and transportation time. Pt states understanding. RN updated on transportation time. YAMILETH placed a call to physician's office and left message updating him that pt will discharge to SNF today and COVID test will be ordered. [facility]ician[facility] transporting pt via cot at 2:30pm Rita Pastor TUBE COVERER, SOLE INKER
--- NOTE | 2021-04-21 14:18 | NURSING ---
Report called to [facility].
--- NOTE | 2021-04-26 10:39 | DS.PCM_ITS ---
Providers Date of Admission: 04/18/21 Primary Care Physician: PHONG SANTA Consultations 04/18/21 13:36 Consult: Hospitalist Routine Consulting Provider: Ishmael Carrasco Reason for Consult: medical management EMERGENT Consult: No MD Notified: Yes Date Notified: 04/18/21 Time Notified: 13:37 Method of Notification: Text Reason For Visit: RT TOTAL HIP ROBOTIC Diagnosis Discharge Diagnosis (1) Hemiparesis affecting right side as late effect of cerebrovascular accident: Status: Acute Code(s): I69.351 - Hemiplegia and hemiparesis following cerebral infarction affecting right dominant side (2) Status post right hip replacement: Status: Acute Code(s): Z96.641 - Presence of right artificial hip joint (3) Noncompliance: Status: Acute Code(s): Z91.19 - Patient's noncompliance with other medical treatment and regimen Medications at Discharge Home Medications albuterol sulfate 90 mcg/actuation breath activated powder inhaler 2 inh INHALATION Q4H PRN 02/10/21 bupropion HCl 150 mg 24 hr tablet, extended release 150 mg PO QAM 02/10/21 famotidine 40 mg tablet 40 mg PO DAILY 02/10/21 lidocaine 5 % topical patch 1 patch TOPICAL DAILY PRN 02/10/21 acetaminophen 1,000 mg PO Q8 #100 tab 04/20/21 apixaban [Eliquis] 2.5 mg PO BID #60 tab 04/20/21 oxycodone 5 - 10 mg PO Q4H PRN 7 Days #60 tab 04/20/21 Hospital Course Summary of Care Provided Hospital Course: 71-year-old female patient with right-sided hemiparesis with severe right hip OA who was not ambulatory for 1 year who claims that she feels she could be ambulatory if it was not for her hip with severe hip pain and failure of conservative treatment and wished to undergo right total hip arthroplasty. She underwent right total hip arthroplasty on 04/18/2021 without any intraoperative complications or significant intraoperative blood loss. She did receive 2 g of transexamined acid as well as pre and postoperative antibiotics which were discontinued within 23 hours postoperatively. She was started on DVT prophylaxis postoperatively in the form of SCDs Eliquis and GLENN hose. And she was seen by physical therapy postoperatively. Patient had expected difficulties postoperatively secondary to a right-sided hemiparesis although she has active motor function of the right lower extremity. Postoperatively her vital signs and labs remained stable, she was mid to the hospital on 04/18/2021 and discharged on 04/21/2021, she was okay to be discharged on 04/20/2021 however no bed was available. She will follow up in the office in 2 weeks for wound check she will continue her Eliquis 2.5 mg twice daily for 30 days Physical Exam Const no apparent distress Extremity Extremity Narrative: Patient's exam remained unchanged throughout her stay her dressing remained clean dry and intact compartments were soft and she was able to plantarflex dorsiflex the ankle Weight / BMI Weight Weight: 143 lb Body Mass Index (BMI) 20.5 ABG / Lab / Microbiology Data Result Diagrams: 04/21/21 05:12 04/19/21 06:48 Microbiology: Microbiology 04/20/21 13:10 Nasal Secretion SARS-CoV-2 Antigen (Rapid) - Final D/C Instructions Call your doctor if you observe: Shortness of breath and Chest pain Additional Dressing/Incision Instructions: Do not shower 72hrs. Begin daily showering warm water antibacterial soap postop day #3( 72hrs Post-operatively) a nd then daily. Leave the dressing on for 72 hours postoperatively then may remove prior to first shower and change dressing daily after this until no drainage for 2 consecutive days then may leave open to air. Follow hip precautions that were reviewed in hospital. Wear compression stockings, may r emove at night. Start physical therapy as directed in hospital. Follow prescriptions instructions do not take any other pain medication or differ dosing without consulting your physician. Do not take oral NSAIDs until blood thinner has been completed , then may begin the day after completion if needed . Call Dr. Noriega's office with any concerns. Please Follow Up With: Bharat Noriega DO When: 2 weeks Meaningful Use Info Meaningful Use Diagnoses (Choose all that apply): None applicable Discharge Plan Admission Admit Date/Time: 04/18/21 05:35 Attending Provider: Bharat Noriega Consulting Providers: Ishmael Carrasco Discharge Orders/Prescriptions Prescriptions: New acetaminophen 500 mg Tablet 1,000 mg PO Q8 Qty: 100 RF: 0 oxycodone 5 mg tablet 5 - 10 mg PO Q4H PRN (Reason: pain) 7 Days Qty: 60 RF: 0 Eliquis 2.5 mg tablet 2.5 mg PO BID Qty: 60 RF: 0 Continued bupropion HCl 150 mg tablet extended release 24 hr 150 mg PO QAM RF: 0 famotidine 40 mg tablet 40 mg PO DAILY RF: 0 lidocaine 5 % adhesive patch,medicated 1 patch topical DAILY PRN (Reason: Pain) RF: 0 albuterol sulfate 90 mcg/actuation aerosol powdr breath activated 2 inh inhalation Q4H PRN (Reason: sob) RF: 0 Discontinued meloxicam 15 mg tablet 15 mg PO DAILY RF: 0 acetaminophen [Tylenol] 325 mg Capsule 1,000 mg PO TID PRN (Reason: Pain) RF: 0 Other Ambulatory Orders: Type & Screen - PAT ONLY (Routine) Timeframe: [id number] Facility: [facility] - Location: Laboratory Ordered By: Dr. Bharat Noriega Referrals / Follow Up: PHONG SANTA [Other] Disposition Disposition (needs filled in before D/C Order can be placed): [facility]
== END 2021-04-21 14:57 | DRG 324 ==
LOC: ACINP 07:41 → MS3 04-19 07:10 → ACINP 04-06 08:56
PROVIDERS: Admitting Provider Orthopaedic Surgery; Referring Provider Orthopaedic Surgery; Visit Provider Orthopaedic Surgery
PROC: 8E0Y0CZ Robotic Assisted Procedure of Lower Extremity, Open Approach (ICD-10-PCS; CPT 27130; principal; 2021-04-18 07:00)
DX: M16.11 Unilateral primary osteoarthritis, right hip (principal); I69.351 Hemiplegia and hemiparesis following cerebral infarction affecting right dominant side; J44.9 Chronic obstructive pulmonary disease, unspecified; F17.200 Nicotine dependence, unspecified, uncomplicated; M51.36 Other intervertebral disc degeneration, lumbar region; I10 Essential (primary) hypertension; Z91.19 Patient's noncompliance with other medical treatment and regimen; Z79.899 Other long term (current) drug therapy
CPT/HCPCS: 27130; S2900; 01214; 88307; J2405; 36415; 73502; 80048; 82962; 85027; 86850; 86900; 86901; 87426; 88305; 88311; 94640; 96361; 96365; 96366; 96375; 97110; 97116; 97162; 97166; 97530; 97535; 99221; 99251; 99406; C1713; C1776; A4216; G0378; G0463